=== PATIENT | female | born 1955 | race Caucasian/White ===

== ENCOUNTER 2017-11-27 18:29 | Emergency (ER) | payer SELFPAY ==
[2017-11-27] MEDS ORDERED: COZAAR PO ONE (23:11)
[2017-11-27] MEDS ORDERED: NACL 0.9% 1000 ML 1,000 ML IV ONE (23:11)
--- NOTE | 2017-11-27 23:11 | Emergency Department Report ---
ED General Adult HPI - General Chief complaint: High BP Stated complaint: HIGH BLOOD PRESSURE Time Seen by Provider: 11/27/17 22:59 Source: patient, family Mode of arrival: Ambulatory Limitations: No Limitations - History of Present Illness Initial comments: 62-year-old female comes to the emergency room for hypertension. Was reported the patient has been in [place] for a couple of months and has not taken her medications. Patient went to her chiropractor and was found to be hypertensive and sent her to the ER. Patient currently should be taking losartan 50 mg daily Lipitor 20 mg daily at bedtime and omeprazole 20 mg daily the patient has not taken for several months. It was reported in triage the patient's blood sugar was 322 on [id number] testing. Patient is not aware what diabetic medication she is on. It was noted the patient is a low-grade fever in triage of 100.7 blood pressure was 166/84 but rechecked at 181/79. - Related Data Previous Rx's Medication Instructions Recorded Last Taken Type Atorvastatin Calcium [Lipitor] 20 mg PO QHS #30 tablet 11/28/17 Unknown Rx Ibuprofen [Motrin 600 MG tab] 600 mg PO Q8H PRN #30 tablet 11/28/17 Unknown Rx Levofloxacin [Levaquin TAB] 500 mg PO QDAY #5 tablet 11/28/17 Unknown Rx metFORMIN [Glucophage] 500 mg PO BID #60 tablet 11/28/17 Unknown Rx Allergies Allergy/AdvReac Type Severity Reaction Status Date / Time Penicillins Allergy Anaphylaxis Verified 11/27/17 23:45 ED Review of Systems ROS: Stated complaint: HIGH BLOOD PRESSURE Other details as noted in HPI ED Past Medical Hx - Past Medical History Previous Medical History?: Yes Hx Hypertension: Yes Hx Diabetes: Yes - Surgical History Past Surgical History?: Yes Hx Breast Surgery: Yes (benign tumor removed from right breast years ago) - Social History Smoking Status: Never Smoker Substance Use Type: None - Medications Home Medications: Home Medications Medication Instructions Recorded Confirmed Last Taken Type Atorvastatin Calcium [Lipitor] 20 mg PO QHS #30 tablet 11/28/17 Unknown Rx Ibuprofen [Motrin 600 MG tab] 600 mg PO Q8H PRN #30 tablet 11/28/17 Unknown Rx Levofloxacin [Levaquin TAB] 500 mg PO QDAY #5 tablet 11/28/17 Unknown Rx metFORMIN [Glucophage] 500 mg PO BID #60 tablet 11/28/17 Unknown Rx ED Physical Exam - General Limitations: No Limitations ED Course Vital Signs 11/27/17 11/28/17 18:37 02:12 Temperature 100.7 F H 99.0 F Pulse Rate 93 H 76 Respiratory 18 18 Rate Blood Pressure 166/84 Blood Pressure 155/64 [Right] O2 Sat by Pulse 95 97 Oximetry ED Medical Decision Making - Lab Data Result diagrams: 11/27/17 23:23 11/27/17 23:23 - Medical Decision Making Patient has been evaluated by this provider fast track. Review of labs shows the patient h a urinary tract infection with elevated WBCs and a urinalysis. [id number] testing of glucose was 322 glucose with her CMP was 320. At that time will be ordered patient to have IV normal saline recheck of glucose was still elevated after having 1 L of fluids ordered 4 units of regular insulin recheck of glucose after an hour of administration of insulin was 330. I placed an order for Levaquin 750 mg IV for UTI, negative airbag thousand milliliters of normal saline and another 6 units of regular insulin IV. With her recheck patient's blood sugar in 1 hour. Guidance of care with this patient has been with Dr. Abdullahi. Critical care attestation.: If time is entered above; I have spent that time in minutes in the direct care of this critically ill patient, excluding procedure time. ED Disposition Clinical Impression: Hyperglycemia UTI (urinary tract infection) Qualifiers: Urinary tract infection type: acute cystitis Hematuria presence: without hematuria Qualified Code(s): N30.00 - Acute cystitis without hematuria Diabetes Qualifiers: Diabetes mellitus type: type 2 Diabetes mellitus correction insulin use: without termite treater use Diabetes mellitus complication status: with unspecified complications Qualified Code(s): E11.8 - Type 2 diabetes mellitus with unspecified complications Hypertension Qualifiers: Hypertension type: unspecified Qualified Code(s): I10 - Essential (primary) hypertension Disposition: -01 TO HOME OR SELFCARE Is pt being admited?: No Does the pt Need Aspirin: No Condition: Stable Instructions: Diabetes Mellitus Type 2 in Adults (ED), Hypertension (ED) Additional Instructions: Please complete antibiotics as prescribed. Please take blood pressure medication as prescribed. Please follow-up with your primary care provider in the next 3-5 days. Prescriptions: Atorvastatin Calcium [Lipitor] 20 mg PO QHS #30 tablet Ibuprofen [Motrin 600 MG tab] 600 mg PO Q8H PRN #30 tablet PRN Reason: Pain Levofloxacin [Levaquin TAB] 500 mg PO QDAY #5 tablet metFORMIN [Glucophage] 500 mg PO BID #60 tablet Referrals: PRIMARY CARE,MD [Primary Care Provider] - 3-5 Days [facility] [Provider Group] - 3-5 Days Forms: Accompanied Note
[2017-11-27] MEDS ORDERED: TYLENOL PO ONE ×2 (23:13→23:52)
[2017-11-27 23:48] LABS: Basophils # (Auto) 0.1 K/mm3 (0.0-0.1); Basophils % (Auto) 0.5 % (0.0-1.8); Eosinophils # (Auto) 0.1 K/mm3 (0.0-0.4); Eosinophils % (Auto) 0.5 % (0.0-4.3); Lymphocytes # (Auto) 1.3 K/mm3 (1.2-5.4); Lymphocytes % (Auto) 12.6 % (13.4-35.0); Mean Corpuscular HGB Conc 36 % (30-34); Mean Corpuscular Hemoglobin 30 pg (28-32); Mean Corpuscular Volume 82 fl (79-97); Monocytes # (Auto) 0.8 K/mm3 (0.0-0.8); Monocytes % (Auto) 7.7 % (0.0-7.3); Platelet Count 206 K/mm3 (140-440); Red Blood Count 4.92 M/mm3 (3.65-5.03); Red Cell Distribution Width 12.8 % (13.2-15.2)
[2017-11-27] MEDS ORDERED: TYLENOL ONE (23:51)
[2017-11-27 23:57] LABS: Bilirubin,Urine NEG (Negative); Blood,Urine SM (Negative); Color,Urine Yellow (Yellow); Urobilinogen,Urine < 2.0 mg/dL (<2.0)
[2017-11-27 23:58] LABS: WBC,Urine > 182.0 /HPF (0.0-6.0)
[2017-11-27 23:59] LABS: Hematocrit 42.1 % (30.3-42.9); Hemoglobin 14.4 gm/dl (10.1-14.3)
[2017-11-28 00:08] LABS: Alanine Aminotransferase 21 units/L (7-56); Albumin 3.9 g/dL (3.9-5); BUN/Creatinine Ratio 22; Blood Urea Nitrogen 13 mg/dL (7-17); Calcium 9.4 mg/dL (8.4-10.2); Hemolysis Index 16
[2017-11-28] MEDS ORDERED: HumuLIN R IV ONE ×2 (02:16→03:22)
[2017-11-28] MEDS ORDERED: NACL 0.9% 1000 ML 1,000 ML IV ONE (03:22)
[2017-11-28] MEDS ORDERED: LEVAQUIN 750MG/150ML 750 MG/150 ML BAG IV ONE (03:22)
[2017-11-28] MEDS ORDERED: ZOFRAN IV ONE (06:08)
[2017-11-28] MEDS ORDERED: ZOFRAN ONE (06:08)
[2017-11-28] MEDS ORDERED: MOTRIN PO ONE ×2 (06:59→07:01)
[2017-11-28 07:00] VITALS: BP 113/68
== END 2017-11-28 07:48 | disposition home or self-care (01) ==
LOC: ED 18:29
DX: I10 Essential (primary) hypertension (principal); N30.00 Acute cystitis without hematuria; E11.65 Type 2 diabetes mellitus with hyperglycemia; Z88.0 Allergy status to penicillin
CPT/HCPCS: 36415; 80053; 81001; 82962; 85025; 96365; 96367; 96375; 96376; 99284; J1956; J2405; J7030; J1815